=== PATIENT | male | born 1960 | race Caucasian/White ===

== ENCOUNTER 2020-12-22 07:04 | Day surgery (SDC) | payer BC ==
[2020-12-17 16:55] LABS: BASOPHILS % (AUTO) 0.1 % (0-1); EOSINOPHILS # (AUTO) 0.1 X10'3 (0-0.9); LYMPHOCYTES # (AUTO) 1.9 X10'3 (1.1-4.8); LYMPHOCYTES % (AUTO) 24.7 % (21-51); MEAN CORPUSCULAR HEMOGLOBIN 29.6 PG (27.0-31.0); MEAN CORPUSCULAR HGB CONC 33.2 g/dL (33.0-36.5); MEAN PLATELET VOLUME 7.2 FL (7.4-10.4); MONOCYTES # (AUTO) 0.9 X10'3 (0-0.9); NEUTROPHILS # (AUTO) 4.7 X10'3 (1.8-7.7); NEUTROPHILS % (AUTO) 62.2 % (42-75); PRE OP HEMATOCRIT 46.5 % (42.0-52.0); PRE OP HEMOGLOBIN 15.4 g/dL (14.0-17.9); PRE OP PLATELET COUNT 251 X10'3 (140-440); RED BLOOD COUNT 5.23 X10'6 (4.70-6.10); RED CELL DISTRIBUTION WIDTH 14.1 % (11.5-14.5)
[2020-12-17 17:18] LABS: ALBUMIN/GLOBULIN RATIO 1.3 (1.1-1.5); ALKALINE PHOSPHATASE 109 IU/L (46-116); BLOOD UREA NITROGEN 20 MG/DL (7-18); BUN/CREATININE RATIO 21.3 (5.4-32.0); CALCIUM 9.3 MG/DL (8.5-10.1); CHLORIDE 101 MMOL/L (99-107); CREATININE 0.94 MG/DL (0.60-1.10); PRE OP ALT 66 U/L (30-65); PRE OP ANION GAP 11 (8-16); PRE OP AST 37 U/L (10-37); PRE OP BILIRUB, TOTAL 0.8 MG/DL (0.0-1.0); PRE OP GLUCOSE 95 MG/DL (70-104); PRE OP POTASSIUM 4.1 MMOL/L (3.4-5.1); PRE OP SODIUM 138 MMOL/L (135-145); TOTAL CARBON DIOXIDE 26.5 MMOL/L (24-32); TOTAL PROTEIN 7.2 G/DL (6.4-8.2); eGFR 82 ML/MIN
[~2020-12-22] VITALS: Ht 180.3 cm; Wt 99.2 kg
[2020-12-22] VITALS (33 sets, daily range): BP systolic 98–161; BP diastolic 61–95
[~2020-12-22 07:04] MED LIST: HYDROcodone/acetaminophen 10/325mg tab PO PRN; HYDROmorphone 1 mg/ml syringe IV PRN; HYDROmorphone inj. 0.5 MG/0.5 ML DISP.SYRIN IV PRN; LISI1TAB51 PO; acetaminophen 325mg tablet PO ONE; acetaminophen 325mg tablet PO PRN; bisacodyl 10mg suppository rectal RC PRN; cefazolin/dext.iso 2gm/100ml IV ONE; celeCOXIB 100mg capsule PO ONE; diphenhydrAMINE 25mg capsule PO PRN; famotidine 20mg tablet PO ONE; gabapentin 300mg capsule PO ONE; magnesium hydroxide 30ml (MOM) UD suspension PO PRN; metoclopramide 5 mg/ml inj IV ONE; ondansetron/PF 4mg/2ml inj IV PRN; oxyCODONE SR 10mg (sust. release) tab -2 tabs (20mg) PO ONE; ringers solution, lacted 1,000 ML IV SCH; tranexamic acid 1gm/0.7% sal. 100 ML IV ONE; vancomycin 1,500 MG in NS 300ml IV soln IV ONE
[2020-12-22] MEDS ORDERED: ketorolac trometh. 30mg/ml inj. ONE (07:19)
[2020-12-22] MEDS ORDERED: ROPIVAcaine 0.5% (5mg/ml) 30ml vial ONE (07:19)
[2020-12-22] MEDS ORDERED: cloNIDine hcl/PF 100mcg/ml inj ONE (07:19)
[2020-12-22] MEDS ORDERED: vancomycin 1,000mg inj ONE (07:19)
[2020-12-22] MEDS ORDERED: epiNEPHrine 1 mg/ml inj ONE (07:19)
[2020-12-22] MEDS ORDERED: hydrALAZINE 20mg/ml inj. IV PRN (07:45)
[2020-12-22] MEDS ORDERED: fentaNYL/PF 50MCG/1 ML 2ML syringe IV PRN ×2 (07:45)
[2020-12-22] MEDS ORDERED: morphine 4 MG/ML inj SYRINge IV PRN (07:45)
[2020-12-22] MEDS ORDERED: labetalol 20mg/4ml (5mg/ml) syringe IV PRN (07:45)
[2020-12-22] MEDS ORDERED: ondansetron/PF 4mg/2ml inj IV PRN (07:45)
[2020-12-22] MEDS ORDERED: ringers solution, lacted 1,000 ML IV SCH (07:45)
[2020-12-22] MEDS ORDERED: morphine 2 MG/ML inj. syringe IV PRN (07:45)
[2020-12-22] MEDS ORDERED: lisinopril 20mg tablet PO SCH (08:00)
[2020-12-22] MEDS ORDERED: HYDROchlorothiazide 12.5mg capsule PO SCH (08:00)
[2020-12-22] MEDS ORDERED: MIDAZolam 1 MG/ML 5ML VIAL ONE (09:25)
[2020-12-22] MEDS ORDERED: fentaNYL/PF 50MCG/1 ML 2ML syringe ONE (09:25)
--- NOTE | 2020-12-22 10:50 | NUR ---
Received from OR via BED, accompanied by Anesthesiologist DR GALINDO and report given by Anesthesiologist. PT DROWSY, DENIES PAIN, LEFT HIP W/JAMIL DRSG CDI W/GREEN LIGHT ILLUMINATION, DERMATOME LEVEL T-12 TO L-1. Addendum: 12/22/20 at 1106 by Elinor Lynch RN Amended: Links added.
[2020-12-22] MEDS: potassium cl 20mEq in 1/2 NS 1,000 ML IV SCH ×3 (14:30→22:30)
[2020-12-22] MEDS ORDERED: tranexamic acid 1gm/0.7% sal. 100 ML IV ONE (15:00)
--- NOTE | 2020-12-22 15:30 | NUR ---
Report called to receiving nurse. Transferred via BED, 2 BAGS OF Belongings, PT WEARING GLASSES TO ROOM 345B, RECEIVING RN AT BEDSIDE TO RECEIVE PT, BLL, CALL LIGHT GIVEN, SIDE RAILS UP X 2. Special Issues communicated to receiving nurse. YES. Addendum: 12/22/20 at 1543 by Elionr Lynch RN Amended: Links added.
[2020-12-22] MEDS: cefazolin/dext.iso 2gm/100ml 100 ML IV SCH (17:19)
[2020-12-22] MEDS: HYDROcodone/acetaminophen 10/325mg tab PO PRN ×2 (17:37→21:34)
--- NOTE | 2020-12-22 18:19 | NUR ---
Assessed patient's dressing. Noted small amount of bleeding. Pulses are +2 on both feet.
--- NOTE | 2020-12-22 18:21 | NUR ---
Problems reprioritized. Patient report given, questions answered & plan of care reviewed with Denita UNDERWOOD.
--- NOTE | 2020-12-22 18:30 | NUR ---
Patient in room [facility]. I have received report from KJ VARELA and had the opportunity to ask questions and assume patient care.
[2020-12-22] MEDS: aspirin 325mg tablet PO SCH (19:02)
[2020-12-22] MEDS: multivitamins, therapeutics tablet PO SCH (19:03)
[2020-12-22] MEDS: lisinopril 20mg tablet PO SCH (19:04)
[2020-12-22] MEDS: HYDROchlorothiazide 12.5mg capsule PO SCH (19:05)
[2020-12-22] MEDS ORDERED: sennosides 8.6mg tablet PO SCH (21:00)
[2020-12-22] MEDS: ascorbic acid 500mg tablet PO SCH (21:30)
[2020-12-22] MEDS: gabapentin 300mg capsule PO SCH (21:31)
[2020-12-23] MEDS: cefazolin/dext.iso 2gm/100ml 100 ML IV SCH (00:08)
[2020-12-23 00:17] VITALS: BP 131/78
[2020-12-23 04:00] VITALS: BP 149/88
[2020-12-23] MEDS: HYDROcodone/acetaminophen 10/325mg tab PO PRN (05:00)
--- NOTE | 2020-12-23 06:16 | NUR ---
Patient in room [facility]. I have received report from Denita UNDERWOOD and had the opportunity to ask questions and assume patient care.
[2020-12-23 06:27] LABS: BASOPHILS % (AUTO) 0.1 % (0-1); EOSINOPHILS # (AUTO) 0.1 X10'3 (0-0.9); EOSINOPHILS % (AUTO) 1.6 % (0-6); HEMATOCRIT 41.5 % (42.0-52.0); HEMOGLOBIN 14.1 g/dl (14.0-17.9); LYMPHOCYTES % (AUTO) 14.2 % (21-51); MEAN CORPUSCULAR HEMOGLOBIN 30.5 PG (27.0-31.0); MEAN CORPUSCULAR VOLUME 89.7 FL (78-98); MEAN PLATELET VOLUME 7.4 FL (7.4-10.4); MONOCYTES % (AUTO) 14.2 % (2-12); NEUTROPHILS # (AUTO) 4.7 X10'3 (1.8-7.7); NEUTROPHILS % (AUTO) 69.9 % (42-75); PLATELET COUNT 201 X10'3 (140-440); RED BLOOD COUNT 4.62 X10'6 (4.70-6.10); RED CELL DISTRIBUTION WIDTH 14.2 % (11.5-14.5); WHITE BLOOD COUNT 6.7 X10'3 (4.5-11.0)
[2020-12-23] MEDS: potassium cl 20mEq in 1/2 NS 1,000 ML IV SCH (06:30)
[2020-12-23 06:41] LABS: ANION GAP 7 (8-16); CHLORIDE 103 MMOL/L (99-107); POTASSIUM 4.6 MMOL/L (3.5-5.1); SODIUM 139 MMOL/L (135-145); TOTAL CARBON DIOXIDE 28.8 MMOL/L (24-32)
[2020-12-23] MEDS: ascorbic acid 500mg tablet PO SCH (07:12)
[2020-12-23] MEDS: gabapentin 300mg capsule PO SCH (07:12)
[2020-12-23] MEDS: multivitamins, therapeutics tablet PO SCH (07:12)
[2020-12-23] MEDS: HYDROchlorothiazide 12.5mg capsule PO SCH (07:13)
[2020-12-23] MEDS: lisinopril 20mg tablet PO SCH (07:16)
[2020-12-23 08:00] VITALS: BP 124/82
[2020-12-23] MEDS: aspirin 325mg tablet PO SCH (09:21)
[2020-12-23 11:00] VITALS: BP 132/83
[2020-12-23] MEDS ORDERED: celeCOXIB 100mg capsule PO SCH (20:00)
== END 2020-12-23 13:28 | disposition home or self-care (01) ==
LOC: PAS 07:04 → SUR 3N 07:05 → PAS 12-23 13:28
PROVIDERS: ATTEND Orthopaedic Surgery
DX: M16.12 Unilateral primary osteoarthritis, left hip (principal); M76.892 Other specified enthesopathies of left lower limb, excluding foot; I10 Essential (primary) hypertension; Z72.89 Other problems related to lifestyle; Z79.899 Other long term (current) drug therapy; Z20.822 Contact with and (suspected) exposure to COVID-19; Z86.16 Personal history of COVID-19
CPT/HCPCS: 27130; 36415; 72170; 80051; 80053; 82948; 85025; 86885; 86900; 86901; 87081; 97110; 97161; 97530; C1776; J0171; J0735; J1885; J2250; J2765; J3010; J3370; J7040; J7120; U0003; U0005; Z7506; Z7508; Z7512; A7000; G0378; J2795; J3480